=== PATIENT | female | born 1945 | race Caucasian/White ===

== ENCOUNTER 2016-12-12 17:14 | Emergency (ER) | payer MEDICARE, BC ==
[2016-12-12] MEDS ORDERED: ONDANSETRON HCL 4 MG TAB.RAPDIS PO PRN (17:29)
[2016-12-12] MEDS ORDERED: KETOROLAC TROMETHAMINE 60 MG/2 ML VIAL IM ONE (17:29)
[2016-12-12] MEDS ORDERED: ONDANSETRON HCL 4 MG TAB.RAPDIS ONE (17:35)
--- NOTE | 2016-12-12 17:48 | ED Physician Documentation ---
Upper Extremity Injury - HISTORIAN Historian: patient - HPI Chief Complaint: Upper Extremity Injury Onset: just prior to arrival Where: other ([employer]) Severity: moderate Duration: persistent since Context: fall Associated Symptoms: tingling (mild right hand) Modifying Factors: pain on movement Further Comments: yes (Patient tripped over a curb and fell on an outstretched arm on her RUE. Patient has some immediate pain in the elbow area, feels that it has some crepitus with movement. Having some mild tingling sensation in the hand. No wrist or elbow pain. Also has some mild pain in the right ankle area. May have twisted the ankle.) - ROS CONST: no problems CVS/RESP: none NEURO: none - PAST HX Past History: Rt handed, other (asthma) - SOCIAL HX Smoking History: non-smoker Alcohol Use: none Drug Use: none - FAMILY HX Family History: none - VITAL SIGNS Vital Signs: Vital Signs Temp Pulse Resp BP Pulse Ox 98.2 F 79 18 125/83 98 12/12/16 17:24 12/12/16 17:24 12/12/16 17:24 12/12/16 17:24 12/12/16 17:24 - REVIEWED ASSESSMENTS Nursing Assessment Reviewed: Yes Vitals Reviewed: Yes ED Results Lab/Radiology - Radiology Radiology Impressions: Report Submission Date: December 12, 2016 5:51:45 PM CDT Patient Study Name: FALGUNI LUKE Date: December 12, 2016 5:28:53 PM CDT Modality Type: CT\SR Gender: F Description: CT BRAIN W/O CONTRAST : [birth year] Institution: [facility] Physician: GAGAN HERNANDEZ - CORNELIUS CT head History: FALL ON ANTICOAGULANTS Multiple axial images of the brain are submitted with reconstructions Findings: No comparison studies Hyperdensities noted along the falx in the supratentorial compartment suggestive of subdural hematoma. There is no midline shift. Significant streak artifact No evidence of acute fracture. The paranasal air sinuses and mastoid air cells are aerated Cerebral atrophy, prominent lateral ventricles. Periventricular small vessel ischemic disease is present Impression: 1. Hyperdensity along the falx extending to the right suggestive of falcine subdural hematoma. No midline shift. 2. Cerebral atrophy. Deep to the prominent lateral ventricles. Periventricular small vessel ischemic disease 3. Dental hardware causing artifact Electronically signed on December 12, 2016 5:51:45 PM CDT by: Jazlyn Walden - Orders Orders: ED Orders Category Date Time Status Short Arm Splint 1T Care 12/12/16 18:42 Active Sling to Affected Extremity 1T Care 12/12/16 18:42 Active ELBOW 3 VIEWS [RAD] Stat Exams 12/12/16 Completed RIGHT ANKLE [ANKLE 3 VIEWS OR MORE] [RAD] Stat Exams 12/12/16 Completed Ketorolac Tromethamine [Toradol] Med 12/12/16 17:29 Discontinued 60 mg IM NOW ONE Ondansetron HCl Rapdis [Zofran Odt] Med 12/12/16 17:29 Ordered 4 mg PO Q6H PRN Upper Extremity Injury Physic - Physical Exam General Appearance: mild distress Hand: normal inspection, non-tender, no evidence of injury, normal ROM. No: deformity, ecchymosis Wrist: normal inspection, non-tender, no evidence of injury, normal ROM Elbow/Forearm: bone tenderness, limited ROM, pain, soft tissue tenderness, swelling (mild) Shoulder: normal inspection, non-tender, no evidence of injury Neuro/Vascular/Tendon: no vascular compromise, motor nml. No: sensation nml ( mild tingling sensation in hand) Skin: warm,dry Head/ENT: nml inspection, pharynx nml Neck/Back: nml inspection Resp/CVS: chest non-tender, breath sounds nml, heart sounds nml, no resp. distress, lungs clear Abdomen: non-tender Discharge Clincal Impression: Hyponatremia Contusion of elbow, right Qualifiers: Encounter type: initial encounter Qualified Code(s): S50.01XA - Contusion of right elbow, initial encounter Right ankle sprain Qualifiers: Encounter type: initial encounter Involved ligament of ankle: calcaneofibular ligament Qualified Code(s): S93.411A - Sprain of calcaneofibular ligament of right ankle, initial encounter Referrals: Primary Doctor,No [Primary Care Provider] - 2 Days Additional Instructions: Wear splint for 24-48 hours. Keep ice over the area. In 48 hours start doing gentle range of motion exercises. Take Ibuprofen 200mg 2-3 tablets every 6 hours as needed for pain. May supplement with some tramadol if needed. This may cause some stomach upset. If you continue to have a lot of apin to follow- up with another possible x-ray. Condition: Stable Decision to Admit: NO Date of Decison to Admit: 12/12/16 Decision Time: 18:29
--- NOTE | 2016-12-12 18:24 | Diagnostic Imaging Report ---
[facility] [address] [facility] [address] [address] Report Submission Date: December 12, 2016 6:13:21 PM CDT Patient Study Name: PAUL WHITE Date: December 12, 2016 5:48:06 PM CDT Modality Type: CR Gender: F Description: UPPER EXTREMITY : 43 Institution: [facility] Physician: GAGAN HERNANDEZ - CORNELIUS Right elbow, 3 views. History: FALL. PAIN. PT STATES FELLS LIKE IT IS POPPING . Findings: The osseous structures are intact without acute fracture. The radial head is in appropriate position and alignment. There is no joint effusion or soft tissue swelling. Impression: 1. No acute osseous abnormality. Electronically signed on December 12, 2016 6:13:21 PM CDT by: Alphonso HERNANDEZ
--- NOTE | 2016-12-12 18:24 | Diagnostic Imaging Report ---
[facility] [address] [facility] [address] Report Submission Date: December 12, 2016 6:14:41 PM CDT Patient Study Name: PAUL WHITE Date: December 12, 2016 5:59:22 PM CDT Modality Type: CR Gender: F Description: LOWER EXTREMITY : 43 Institution: [facility] Physician: GAGAN HERNANDEZ - CORNELIUS Right ankle, 3 views. History: FALL. PAIN. SWELLING ON LATERAL SIDE OF ANKLE Findings: The osseous structures are normal. The ankle mortise is normal. There is no fracture identified. Small well corticated ossicles present adjacent to the distal fibula. No soft tissue swelling is identified. Impression: 1. No acute osseous abnormality. Electronically signed on December 12, 2016 6:14:41 PM CDT by: Alphonso HERNANDEZ
[2016-12-12 19:10] VITALS: BP 112/74
== END 2016-12-12 19:08 ==
LOC: ED 17:14
DX: S50.01XA Contusion of right elbow, initial encounter (principal); S93.411A Sprain of calcaneofibular ligament of right ankle, initial encounter; W19.XXXA Unspecified fall, initial encounter; Y93.9 Activity, unspecified; Y99.9 Unspecified external cause status; Z79.01 Long term (current) use of anticoagulants; E87.1 Hypo-osmolality and hyponatremia
CPT/HCPCS: 73080; 73610; A9270; J1885